=== PATIENT | female | born 1930 | race Caucasian/White ===

== ENCOUNTER → 2017-08-27 19:02 | Observation (INO) ==
[2017-08-26 18:47] VITALS: BMI 26.4
--- NOTE | 2017-08-26 20:56 | History & Physical Report ---
History of Present Illness Date: 08/26/17 Chief complaint: Passing bright red blood rectally HPI: Mrs Allen is an 86 y/o active and healthy female who is made direct admit to [facility] secondary to rectal bleeding. Work up this am at about 0200 with feeling of need to have bowel movement. When to bathroom. Reports was on toilet for about 35 minutes - passed stool, but also had significant sharp lower ab pain with passing stool. Reports did not look at stool when she left bathroom. Returned to bed, but woke again at 0500 with need to have stool. Stool she produced was bloody. Has been having crampy ab pain since-pain worse with passing stool. No nausea or vomiting. Bowel function has been stable in prior days. No f/c. Breathing stable without SOA or cough. No chest pressure or palpitations. As symptoms continued, presented to clinic for evaluation. Hemoglobin check and was 11.4 - showing decrease from 12.5 when check 2 to 3 months ago. WBC normal at 8.0. Did pass bloody stool while in clinic. With these finding, Dr Blake was notified and patient placed in observation status for monitoring for due to her acute lower GI blood loss. Review of Systems All systems PM: 10-point ROS was reviewed, no additional remarkable complaints except - Constitutional Constitutional: Absent: chills, fever(s), night sweats - Cardiovascular Cardiovascular: Absent: palpitations, dyspnea on exertion - Gastrointestinal Gastrointestinal: Absent: dyspepsia, dysphagia, nausea, vomiting Past Medical History Medical History Updates: HTN, Arthritis Surgical History: Julia in 65, Hyst and appy in 77, Right total knee 02, Right knee Sx 11, Left total knee 8/16, Back Sx x2, Bladder suspention Family History Updates: Mother had diverticulitis. Sister - CAD Family History: As Above - Social History Smoking status: Never smoker Alcohol intake frequency: holidays/special occasions only Housing: house Household members: children (Aubree lives with her) Current residence: Apartment/Private Home Social history: Christine Castillo PCP Medications Home Medications Medication Instructions Recorded Confirmed Type Calcium Carbonate (Calcium) 600 mg PO BID #0 01/14/11 08/26/17 History Multivitamins (Multiple Vitamin) 1 tab PO DAILY #0 01/14/11 08/26/17 History Losartan Potassium 100 mg PO DAILY #0 tab 02/13/14 05/01/18 History Amlodipine Besylate 2.5 mg PO DAILY #0 tab 11/28/15 08/26/17 History Lactase (Lactaid) 1 tab PO PRN #0 11/28/15 08/26/17 History Tramadol HCl [Ultram] 50 - 100 mg PO Q4H PRN #60 tab 12/06/15 08/26/17 Rx Acetaminophen [Tylenol] 650 mg PO QID PRN 08/26/17 08/26/17 History Aspirin [Aspirin EC] 81 mg PO DAILY 08/26/17 08/26/17 History Allergies Allergy/AdvReac Type Severity Reaction Status Date / Time morphine Allergy Unknown HALLUCINATI Verified 11/28/15 15:58 ON-N/V lactose AdvReac Unknown GI UPSET Verified 11/28/15 16:03 Exam Vital Signs: Temperature 98.3 F 08/26/17 18:49 Pulse Rate 82 08/26/17 18:49 Respiratory Rate 16 08/26/17 18:49 Blood Pressure 155/69 H 08/26/17 18:49 Pulse Oximetry 97 08/26/17 18:49 Height/Weight/BMI: Height 1.52 m Weight 61.5 kg Body Mass Index 26.4 - Constitutional Present: well nourished, well developed, average body habitus, cooperative - Routine HEENT Exam Head: Present: normocephalic, atraumatic Eye: Present: EOMI, PERRL ENT: Present: mucous membranes moist - Routine Neck Exam Present: supple, full ROM, trachea midline - Routine Respiratory Exam Present: CTA bilaterally. Absent: respiratory distress - Routine Cardiovascular Exam Present: RRR, no murmur - Routine Abdominal Exam Present: soft, normoactive bowel sounds, non distended, non tender. Absent: guarding - Routine Extremities Exam Present: no edema, pulses intact. Absent: cyanosis, clubbing - Routine Skin Exam Present: intact, dry, warm - Routine Neurological Exam Present: alert, oriented X3, CN II-XII intact, moving all extremities, vision grossly intact, hearing grossly intact, normal speech. Absent: motor deficit, altered mental status - Routine Psychiatric Exam Present: normal affect, normal thought process, cooperative, good insight, good judgment Results - Labs CBC & Chem 7: 08/26/17 20:20 08/26/17 20:20 Assessment and Plan (1) Bright red blood per rectum Current visit: Yes Status: Acute Assessment and Plan: Assessment Bright red blood per rectum - possible diverticular bleed Anemia secondary to acute blood loss HTN OA Plan OBS admission Serial hemoglobin secondary to blood loss. Patient Typed and screened due to blood loss. Hold ASA due to acute bleeding. IVF of NS at 75cc/hr to help with hydration. Hold antihypertensives to decrease risk for hypotension. SCD for DVT prevention. Sx consult if bleeding persists. Full code per her requests. Care to return to [facility] at time of discharge from [facility]. DVT Prophylaxis: SCD's Resuscitation Status: Full Code - Time spent with patient Time with patient PN: 70 minutes - Physician Narrative Physician: Bayron Blake MD Narrative: Date: 08/26/17 Time: 2048 Hospital Course Summary Disclaimer: The visit summary below is not to be considered part of the above Progress Note. Hospital Course: 08/26/17 OBS admission Serial hemoglobin secondary to blood loss. Patient Typed and screened due to blood loss. Hold ASA due to acute bleeding. IVF of NS at 75cc/hr to help with hydration. Hold antihypertensives to decrease risk for hypotension. SCD for DVT prevention. Sx consult if bleeding persists. Full code per her requests. Care to return to [facility] at time of discharge from [facility].
[2017-08-26] MEDS: NS with KCL 20 mEq 1,000 ML IV SCH (21:48)
[2017-08-27] MEDS: NS with KCL 20 mEq 1,000 ML IV SCH (11:19)
--- NOTE | 2017-08-27 12:32 | Progress Note ---
- Date 08/27/17 Subjective: F/U: Bright red blood per rectum - possible diverticular bleed, Anemia secondary to acute blood loss Doing well this morning. Did pass stool earlier that had blood, but not as large a quantity and having more clot. Some ab pain when passes flatus. No ab pain or nausea otherwise. Breathing well. Up ambulating in room without feeling dizzy, unsteady, or SOA. No chest pressure or palpitations. No f/c. Reports feels very well overall. Objective Vital signs: Temperature 97.4 F 08/27/17 08:28 Pulse Rate 75 08/27/17 08:28 Respiratory Rate 16 08/27/17 08:28 Blood Pressure 145/68 H 08/27/17 08:28 Pulse Oximetry 97 08/27/17 08:28 Height/Weight/BMI: Height 1.52 m Weight 62.5 kg Body Mass Index 26.4 - Constitutional Present: no acute distress, well nourished, well developed, average body habitus , cooperative - Routine HEENT Exam Head: Present: normocephalic, atraumatic Eye: Present: EOMI, PERRL, normal accommodation ENT: Present: mucous membranes moist - Routine Respiratory Exam Present: CTA bilaterally. Absent: respiratory distress - Routine Cardiovascular Exam Present: RRR, no murmur - Routine Abdominal Exam Present: soft, non distended, non tender. Absent: normoactive bowel sounds ( Slighly decreased) - Routine Extremities Exam Present: no edema. Absent: cyanosis, clubbing Comments: SCD in place - Routine Musculoskeletal Exam Musculoskeletal: Present: no clubbing or cyanosis, normal strength - Routine Skin Exam Present: dry, warm - Routine Neurological Exam Present: alert, oriented X3, CN II-XII intact, moving all extremities, vision grossly intact, hearing grossly intact, normal speech. Absent: motor deficit, altered mental status - Routine Psychiatric Exam Present: normal affect, normal thought process, cooperative, good insight, good judgment Results - Labs CBC & Chem 7: 08/27/17 11:59 08/27/17 04:53 Assessment and Plan (1) Bright red blood per rectum Current visit: Yes Status: Acute Assessment and Plan: Assessment Bright red blood per rectum/Hematochezia - possible diverticular bleed Anemia secondary to acute blood loss HTN OA Hypokalemia (POA) - resolved. Plan Rectal bleeding decreasing. Will stop IVF and advance diet. Hemoglobin with slight decrease to 10.1. Continue to hold ASA. Encourage ambulation. Possible discharge later today if continues to do well. Will need outpatient colonoscopy in near future. 1730 Doing well today. Passing stools, loose but not bloody or painful. Eating well. Breathing well. Ambulating well. Will discharge to home. STOP ASA secondary to GI bleeding. Recommend FiberCon BID for colon protection. Recommend colonoscopy in near future - did see Dr Mayer for last colonoscopy. Discussed with Dr Mayer - his clinic will call patient tomorrow for fast track colonoscopy. Can follow up with Autumn Shrestha in 1 week to recheck CBC. See orders for details. Time spent with patient care and discharge greater than 30 minutes. DVT Prophylaxis: SCD's Resuscitation Status: Full Code - Time spent with patient Time with patient PN: 25 minutes - Physician Narrative Physician: Bayron Blake MD Narrative: Date: 08/27/17 Time: 1229 Hospital Course Summary Disclaimer: The visit summary below is not to be considered part of the above Progress Note. Hospital Course: 08/26/17 OBS admission Serial hemoglobin secondary to blood loss. Patient Typed and screened due to blood loss. Hold ASA due to acute bleeding. IVF of NS with 20KCl at 75cc/hr to help with hydration and improve potassium. Hold antihypertensives to decrease risk for hypotension. SCD for DVT prevention. Sx consult if bleeding persists. Full code per her requests. Care to return to [facility] at time of discharge from [facility]. 08/27/17 Rectal bleeding decreasing. Will stop IVF and advance diet. Hemoglobin with slight decrease to 10.1. Continue to hold ASA. Encourage ambulation. Possible discharge later today if continues to do well. Will need outpatient colonoscopy in near future. 1730 Doing well today. Passing stools, loose but not bloody or painful. Eating well. Breathing well. Ambulating well. Will discharge to home. STOP ASA secondary to GI bleeding. Recommend FiberCon BID for colon protection. Recommend colonoscopy in near future - did see Dr Mayer for last colonoscopy. Discussed with Dr Mayer - his clinic will call patient tomorrow for fast track colonoscopy. Can follow up with Autumn Shrestha in 1 week to recheck CBC. See orders for details.
[2017-08-27 15:13] VITALS: BP 156/68; RESP 20; TEMP 97.6; O2SAT 98
[2017-08-27 17:20] VITALS: PULSE 68
--- NOTE | 2017-08-27 17:49 | Discharge Summary ---
Discharge Information Date of admission: 08/26/17 18:27 Anticipated date of discharge: 08/27/17 Attending Physician: Bayron Blake MD Primary care physician: Autumn Shrestha APRN - Discharge Diagnosis (1) Bright red blood per rectum Status: Acute Discharge diagnosis Hematochezia - possible diverticular bleed Associated conditions and complications Anemia secondary to acute blood loss HTN OA Hypokalemia (POA) - resolved. - Laboratory Labs: Admit Lab 08/26/17 20:20 WBC 7.3 Hgb 11.3 L Hct 32.9 L MCV 95.9 Plt Count 296 Neut % (Auto) 70.3 H Lymph % (Auto) 20.2 L [place] % (Auto) 7.8 Eos % (Auto) 1.5 Baso % (Auto) 0.1 Admit Lab 08/26/17 08/26/17 20:20 20:20 Sodium 138 Potassium 3.3 L Chloride 102 Carbon Dioxide 25 Anion Gap 11 BUN 10.0 Creatinine 0.4 L GFR Calculation 152 BUN/Creatinine Ratio 25 Glucose 118 H Calculated Osmolality 266 Calcium 9.4 Magnesium 1.8 Total Bilirubin 0.40 AST 26 ALT 19 Alkaline Phosphatase 99 Total Protein 7.3 Albumin 4.1 Globulin 3.2 Albumin/Globulin Ratio 1.3 08/27/17 11:59 08/27/17 04:53 History of Present Illness HPI: Mrs Allen is an 86 y/o active and healthy female who is made direct admit to [facility] secondary to rectal bleeding. Work up this am at about 0200 with feeling of need to have bowel movement. When to bathroom. Reports was on toilet for about 35 minutes - passed stool, but also had significant sharp lower ab pain with passing stool. Reports did not look at stool when she left bathroom. Returned to bed, but woke again at 0500 with need to have stool. Stool she produced was bloody. Has been having crampy ab pain since-pain worse with passing stool. No nausea or vomiting. Bowel function has been stable in prior days. No f/c. Breathing stable without SOA or cough. No chest pressure or palpitations. As symptoms continued, presented to clinic for evaluation. Hemoglobin check and was 11.4 - showing decrease from 12.5 when check 2 to 3 months ago. WBC normal at 8.0. Did pass bloody stool while in clinic. With these finding, Dr Blake was notified and patient placed in observation status for monitoring for due to her acute lower GI blood loss. For complete details of the H&P refer to that document. Objective Vital signs: Temperature 97.6 F 08/27/17 15:10 Pulse Rate 68 08/27/17 16:00 Respiratory Rate 20 08/27/17 15:10 Blood Pressure 156/68 H 08/27/17 15:10 Pulse Oximetry 98 08/27/17 15:10 Height/Weight/BMI: Height 1.52 m Weight 62.5 kg Body Mass Index 26.4 Hospital Course This is a general summary of the patient's hospital course. For more details refer to the complete medical record. Hospital course: 08/26/17 OBS admission Serial hemoglobin secondary to blood loss. Patient Typed and screened due to blood loss. Hold ASA due to acute bleeding. IVF of NS with 20KCl at 75cc/hr to help with hydration and improve potassium. Hold antihypertensives to decrease risk for hypotension. SCD for DVT prevention. Sx consult if bleeding persists. Full code per her requests. Care to return to [facility] at time of discharge from [facility]. 08/27/17 Rectal bleeding decreasing. Will stop IVF and advance diet. Hemoglobin with slight decrease to 10.1. Continue to hold ASA. Encourage ambulation. Possible discharge later today if continues to do well. Will need outpatient colonoscopy in near future. 1730 Doing well today. Passing stools, loose but not bloody or painful. Eating well. Breathing well. Ambulating well. Will discharge to home. STOP ASA secondary to GI bleeding. Recommend FiberCon BID for colon protection. Recommend colonoscopy in near future - did see Dr Mayer for last colonoscopy. Discussed with Dr Mayer - his clinic will call patient tomorrow for fast track colonoscopy. Can follow up with Autumn Shrestha in 1 week to recheck CBC. See orders for details. Time spent with patient: discharge greater than 30 minutes Resuscitation Status: Full Code Discharge Plan - Discharge Disposition Discharge Date: 08/27/17 Disposition: 01 Discharged Home, Self-Care *Condition: Stable Reason For Visit (Visit label in EMR): bright red blood per rectum - Discharge Medications *Discharge Medications: New Calcium Polycarbophil [Fibercon] 625 mg PO BID #1 bottle Continue Multivitamins (Multiple Vitamin) 1 tab PO DAILY #0 Losartan Potassium [Cozaar] 100 mg PO DAILY Calcium Carbonate (Calcium) 600 mg PO BID #0 Lactase (Lactaid) 1 tab PO PRN #0 Triamterene/Hctz 37.5/25 Tab [MAXZIDE-25 eqv] 0.5 tab PO DAILY Acetaminophen 650 mg PO QID PRN PRN Reason: Pain Amlodipine Besylate [Norvasc] 2.5 mg PO DAILY Tramadol HCl [Ultram] 50 - 100 mg PO Q4H PRN PRN Reason: Pain Discontinued Aspirin *EC* [Ecotrin] 1 tab PO DAILY - Discharge Packet/Instructions *Diet: Low sodium, high fiber *Activity: As tolerated *Pain Management/Treatment: Tylenol and tramadol safe for pain control. *Wound Care: n/a Additional Instructions: STOP aspirin to decrease risk for bleeding. *Expected Signs/Symptoms: Passing of blood to stop. *Notify Physician if: Rectal bleeding returns. *During Business Hours Contact: Autumn Shrestha *After Business Hours Contact: Call [facility] and have Autumn Shrestha or her covering provider contacted. *Pending Lab/Results: No Pending Lab - Referrals/Follow Up *Referrals/Follow Up: Autumn Shrestha, TIME RECORDER [Primary Care Provider] - 1 Week (Hospital follow up for hematochezia - recommend rechecking CBC. ) Darell Mayer MD [Physician] - (Dr Mayer's office will call you tomorrow to set up appointment to arrange colonoscopy. ) - Patient Handouts - Dismissal Complete Discharge Instructions are:: Complete Physician Narrative - Narrative Physician: Bayron Blake MD Attestation Narrative: Date: 08/27/17 Time: 1745 I have independently interviewed and examined patient prior to discharge. See my progress note for details. Medically stable for discharge to home.
[~2017-08-27 19:02] MED LIST: ACETAMINOPHEN 325 MG TABLET PO PRN; NS 1,000 ML IV SCH; ONDANSETRON 4 MG/2 ML INJECTION IVP PRN; TRAMADOL 50 MG TABLET PO PRN
== END | disposition home or self-care (01) ==
LOC: MED
PROVIDERS: ADMIT Hospitalist; ATTEND Hospitalist